=== PATIENT | female | born 1945 | race Caucasian/White ===

== ENCOUNTER 2016-11-29 11:13 | Outpatient (CLI) | payer MEDICARE | END 2016-11-29 11:14 | disposition home or self-care (01) | DX: R53.83 Other fatigue (principal); R53.1 Weakness; K57.92 Diverticulitis of intestine, part unspecified, without perforation or abscess without bleeding; Z79.899 Other long term (current) drug therapy ==

== ENCOUNTER 2016-11-30 12:42 | Outpatient (CLI) | payer MEDICARE ==
[2016-11-30] MEDS ORDERED: IOPAMIDOL-300 50 ML VIAL PO ONE (14:33)
[2016-11-30] MEDS ORDERED: IOPAMIDOL-300 100 ML VIAL IVP ONE (14:33)
== END 2016-11-30 12:43 | disposition home or self-care (01) ==
DX: K65.1 Peritoneal abscess (principal); K57.00 Diverticulitis of small intestine with perforation and abscess without bleeding
CPT/HCPCS: 74177; Q9967

== ENCOUNTER 2016-11-30 16:25 | Inpatient (IN) | payer MEDICARE ==
[2016-11-30] MEDS ORDERED: MORPHINE 2 MG/ML SYRINGE IVP STA ×2 (19:08→22:13)
[2016-11-30] MEDS ORDERED: MORPHINE 2 MG/ML SYRINGE ONE ×2 (19:24→22:26)
[2016-11-30] MEDS ORDERED: PIPERACILLIN/TAZOBACTAM 3.375 GM in SODIUM CHLORIDE 0.9% MINIBAG 100 ML IV STA (19:39)
[2016-11-30] MEDS ORDERED: HYDROmorphone 1 MG/ML SYRINGE IVP STA (22:31)
[2016-11-30] MEDS ORDERED: ERTAPENEM 1 GM in SODIUM CHLORIDE 0.9% MINIBAG 100 ML IV STA (22:31)
[2016-11-30] MEDS ORDERED: oxyCODONE/ACET 5/325 Prepack 4 PO STA (22:31)
[2016-11-30] MEDS ORDERED: oxyCODONE/ACET 5/325 Prepack 4 PO ONE (22:36)
[2016-11-30] MEDS ORDERED: HYDROmorphone 1 MG/ML SYRINGE ONE (22:36)
[2016-11-30] MEDS ORDERED: ONDANSETRON 4 MG/2 ML VIAL IVP STA (23:36)
[2016-11-30] MEDS ORDERED: ONDANSETRON 4 MG/2 ML VIAL ONE (23:37)
[2016-12-01] MEDS ORDERED: SODIUM CHLORIDE 0.9% 1,000 ML IV ONE (00:24)
[2016-12-01] MEDS ORDERED: PROMETHAZINE INJ 12.5 MG in SODIUM CHLORIDE 0.9% 50 ML IV STA (00:34)
[2016-12-01] MEDS ORDERED: FAMOTIDINE 20 MG/50 ML 50 ML IV ONE (00:46)
[2016-12-01] MEDS ORDERED: PANTOPRAZOLE 40 MG VIAL IVP STA (00:52)
[2016-12-01] MEDS ORDERED: PANTOPRAZOLE 40 MG VIAL ONE (00:56)
[2016-12-01] MEDS ORDERED: PROMETHAZINE 25 MG/1 ML VIAL ONE (01:31)
[2016-12-01] MEDS ORDERED: ONDANSETRON 4 MG/2 ML VIAL IVP PRN ×2 (03:26→07:59)
[2016-12-01] MEDS ORDERED: MORPHINE 2 MG/ML SYRINGE IVP PRN (03:26)
[2016-12-01] MEDS ORDERED: PROMETHAZINE 25 MG/1 ML VIAL IM PRN (03:26)
[2016-12-01] MEDS ORDERED: ZOLPIDEM 5 MG TABLET PO PRN (03:26)
[2016-12-01] MEDS ORDERED: PROCHLORPERAZINE 10 MG/2 ML VIAL IVP PRN (03:26)
[2016-12-01] MEDS ORDERED: oxyCODONE 5 MG TABLET PO PRN (03:26)
[2016-12-01] MEDS ORDERED: ACETAMINOPHEN 325 MG TABLET PO PRN (03:26)
[2016-12-01] MEDS: SODIUM CHLORIDE 0.9% 1,000 ML IV SCH ×3 (04:07→23:53)
[2016-12-01] MEDS: PANTOPRAZOLE 40 MG VIAL IVP SCH ×2 (04:07→15:51)
[2016-12-01] MEDS: SODIUM CHLORIDE FLUSH 0.9% 10 ML SYRINGE IVP SCH ×3 (04:08→23:57)
[2016-12-01] MEDS: IBUPROFEN 400 MG TABLET PO PRN ×2 (08:56→21:41)
[2016-12-01] MEDS: LOSARTAN 50 MG TABLET PO SCH ×2 (08:56→21:41)
[2016-12-01] MEDS: amLODIPine 5 MG TABLET PO SCH (08:56)
[2016-12-01] MEDS: ASPIRIN EC 81 MG TABLET PO SCH (08:56)
[2016-12-01] MEDS: ENOXAPARIN 40 MG/0.4 ML SYRINGE SUBQ SCH (08:57)
[2016-12-01] MEDS: INSULIN ASPART 300 UNIT/3 ML PEN SUBQ SCH ×4 (08:58→21:31)
[2016-12-01] MEDS: POLYETHYLENE GLYCOL 3350 17 GM PACKET PO SCH (09:00)
[2016-12-01] MEDS: ATENOLOL 25 MG TABLET PO SCH (09:05)
[2016-12-01] MEDS: ERTAPENEM 1 GM in SODIUM CHLORIDE 0.9% MINIBAG 100 ML IV SCH (12:21)
[2016-12-02] MEDS: SODIUM CHLORIDE FLUSH 0.9% 10 ML SYRINGE IVP SCH ×3 (06:55→16:19)
[2016-12-02] MEDS: PANTOPRAZOLE 40 MG VIAL IVP SCH ×2 (06:55→16:19)
[2016-12-02] MEDS ORDERED: IOPAMIDOL-300 100 ML VIAL IVP ONE (11:22)
[2016-12-02] MEDS: ASPIRIN EC 81 MG TABLET PO SCH (12:24)
[2016-12-02] MEDS: LOSARTAN 50 MG TABLET PO SCH ×2 (12:24→21:41)
[2016-12-02] MEDS: amLODIPine 5 MG TABLET PO SCH (12:24)
[2016-12-02] MEDS: ATENOLOL 25 MG TABLET PO SCH (12:24)
[2016-12-02] MEDS: ERTAPENEM 1 GM in SODIUM CHLORIDE 0.9% MINIBAG 100 ML IV SCH (12:25)
[2016-12-02] MEDS: INSULIN ASPART 300 UNIT/3 ML PEN SUBQ SCH ×4 (12:26→22:32)
[2016-12-02] MEDS: ENOXAPARIN 40 MG/0.4 ML SYRINGE SUBQ SCH (12:27)
[2016-12-02] MEDS: POLYETHYLENE GLYCOL 3350 17 GM PACKET PO SCH (12:27)
[2016-12-02] MEDS ORDERED: POTASSIUM CHLORIDE 20 MEQ TABLET PO SCH (13:00)
[2016-12-02] MEDS: POTASSIUM CHLORIDE 20 MEQ TABLET PO SCH (13:03)
[2016-12-02] MEDS: IBUPROFEN 400 MG TABLET PO PRN (16:14)
[2016-12-03] MEDS: SODIUM CHLORIDE 0.9% 1,000 ML IV SCH ×2 (02:39→06:47)
[2016-12-03] MEDS: PANTOPRAZOLE 40 MG VIAL IVP SCH ×2 (06:48→16:18)
[2016-12-03] MEDS: SODIUM CHLORIDE FLUSH 0.9% 10 ML SYRINGE IVP SCH ×3 (06:48→20:45)
[2016-12-03] MEDS: ERTAPENEM 1 GM in SODIUM CHLORIDE 0.9% MINIBAG 100 ML IV SCH (08:33)
[2016-12-03] MEDS: ASPIRIN EC 81 MG TABLET PO SCH (08:33)
[2016-12-03] MEDS: POLYETHYLENE GLYCOL 3350 17 GM PACKET PO SCH (08:33)
[2016-12-03] MEDS: LOSARTAN 50 MG TABLET PO SCH ×2 (08:33→20:43)
[2016-12-03] MEDS: amLODIPine 5 MG TABLET PO SCH (08:33)
[2016-12-03] MEDS: POTASSIUM CHLORIDE 20 MEQ TABLET PO SCH ×2 (08:33→08:34)
[2016-12-03] MEDS: ENOXAPARIN 40 MG/0.4 ML SYRINGE SUBQ SCH (08:33)
[2016-12-03] MEDS: ATENOLOL 25 MG TABLET PO SCH (08:33)
[2016-12-03] MEDS: IBUPROFEN 400 MG TABLET PO PRN (14:11)
[2016-12-03] MEDS: SODIUM CHLORIDE FLUSH 0.9% 10 ML SYRINGE IVP PRN (16:18)
[2016-12-03] MEDS: oxyCODONE 5 MG TABLET PO PRN (20:43)
[2016-12-04] MEDS: SODIUM CHLORIDE FLUSH 0.9% 10 ML SYRINGE IVP SCH ×3 (07:04→20:11)
[2016-12-04] MEDS: SODIUM CHLORIDE FLUSH 0.9% 10 ML SYRINGE IVP PRN (07:04)
[2016-12-04] MEDS: PANTOPRAZOLE 40 MG VIAL IVP SCH ×2 (07:04→16:54)
[2016-12-04] MEDS: POTASSIUM CHLORIDE 20 MEQ TABLET PO SCH (08:04)
[2016-12-04] MEDS: ASPIRIN EC 81 MG TABLET PO SCH (08:04)
[2016-12-04] MEDS: ERTAPENEM 1 GM in SODIUM CHLORIDE 0.9% MINIBAG 100 ML IV SCH (08:04)
[2016-12-04] MEDS: amLODIPine 5 MG TABLET PO SCH (08:04)
[2016-12-04] MEDS: LOSARTAN 50 MG TABLET PO SCH ×2 (08:04→20:11)
[2016-12-04] MEDS: IBUPROFEN 400 MG TABLET PO PRN (08:04)
[2016-12-04] MEDS: POLYETHYLENE GLYCOL 3350 17 GM PACKET PO SCH (08:05)
[2016-12-04] MEDS: ENOXAPARIN 40 MG/0.4 ML SYRINGE SUBQ SCH (08:05)
[2016-12-04] MEDS: ATENOLOL 25 MG TABLET PO SCH (08:05)
[2016-12-05] MEDS: IBUPROFEN 400 MG TABLET PO PRN (00:08)
[2016-12-05] MEDS: PANTOPRAZOLE 40 MG VIAL IVP SCH ×2 (06:54→17:16)
[2016-12-05] MEDS: SODIUM CHLORIDE FLUSH 0.9% 10 ML SYRINGE IVP SCH ×4 (06:55→21:32)
[2016-12-05] MEDS ORDERED: IOPAMIDOL-300 100 ML VIAL IVP ONE (09:30)
[2016-12-05] MEDS: POTASSIUM CHLORIDE 20 MEQ TABLET PO SCH (09:48)
[2016-12-05] MEDS: LOSARTAN 50 MG TABLET PO SCH ×2 (09:48→21:05)
[2016-12-05] MEDS: ASPIRIN EC 81 MG TABLET PO SCH (09:48)
[2016-12-05] MEDS: amLODIPine 5 MG TABLET PO SCH (09:48)
[2016-12-05] MEDS: ATENOLOL 25 MG TABLET PO SCH (09:48)
[2016-12-05] MEDS: ENOXAPARIN 40 MG/0.4 ML SYRINGE SUBQ SCH (09:54)
[2016-12-05] MEDS: POLYETHYLENE GLYCOL 3350 17 GM PACKET PO SCH (10:01)
[2016-12-05] MEDS: ERTAPENEM 1 GM in SODIUM CHLORIDE 0.9% MINIBAG 100 ML IV SCH (14:14)
[2016-12-05] MEDS ORDERED: LIDOCAINE 2% 10 ML MDV ONE (16:25)
[2016-12-05] MEDS: oxyCODONE 5 MG TABLET PO PRN (21:05)
[2016-12-05] MEDS: SODIUM CHLORIDE FLUSH 0.9% 10 ML SYRINGE IVP PRN (21:19)
[2016-12-06] MEDS: PANTOPRAZOLE 40 MG VIAL IVP SCH (06:07)
[2016-12-06] MEDS: SODIUM CHLORIDE FLUSH 0.9% 10 ML SYRINGE IVP SCH (06:07)
[2016-12-06] MEDS: ERTAPENEM 1 GM in SODIUM CHLORIDE 0.9% MINIBAG 100 ML IV SCH (08:57)
[2016-12-06] MEDS: ATENOLOL 25 MG TABLET PO SCH (08:57)
[2016-12-06] MEDS: POTASSIUM CHLORIDE 20 MEQ TABLET PO SCH (08:57)
[2016-12-06] MEDS: ASPIRIN EC 81 MG TABLET PO SCH (08:57)
[2016-12-06] MEDS: ENOXAPARIN 40 MG/0.4 ML SYRINGE SUBQ SCH ×2 (08:57→09:45)
[2016-12-06] MEDS: LOSARTAN 50 MG TABLET PO SCH (08:57)
[2016-12-06] MEDS: amLODIPine 5 MG TABLET PO SCH (08:57)
[2016-12-06] MEDS: POLYETHYLENE GLYCOL 3350 17 GM PACKET PO SCH (08:58)
== END 2016-12-06 14:11 | disposition home or self-care (01) | DRG 392 ==
PROC: 02HV33Z Insertion of Infusion Device into Superior Vena Cava, Percutaneous Approach (ICD-10-PCS; principal; 2016-12-05)
DX: K57.20 Diverticulitis of large intestine with perforation and abscess without bleeding (principal); I25.810 Atherosclerosis of coronary artery bypass graft(s) without angina pectoris; R11.0 Nausea; E87.6 Hypokalemia; R42 Dizziness and giddiness; R11.2 Nausea with vomiting, unspecified; T36.8X5A Adverse effect of other systemic antibiotics, initial encounter; Y92.238 Other place in hospital as the place of occurrence of the external cause; I10 Essential (primary) hypertension; Z79.82 Long term (current) use of aspirin; E78.5 Hyperlipidemia, unspecified; K21.9 Gastro-esophageal reflux disease without esophagitis; Z95.1 Presence of aortocoronary bypass graft

== ENCOUNTER 2016-12-15 16:56 | Outpatient (CLI) | payer MEDICARE ==
[2016-12-15] MEDS ORDERED: IOPAMIDOL-300 100 ML VIAL IVP ONE (18:46)
[2016-12-15] MEDS ORDERED: IOPAMIDOL-300 50 ML VIAL PO ONE (18:46)
== END 2016-12-15 16:57 | disposition home or self-care (01) ==
DX: K57.30 Diverticulosis of large intestine without perforation or abscess without bleeding (principal); I71.4 Abdominal aortic aneurysm, without rupture

== ENCOUNTER 2017-01-01 16:27 | Outpatient (CLI) | payer MEDICARE | END 2017-01-01 16:28 | disposition home or self-care (01) | DX: R10.9 Unspecified abdominal pain (principal); Z86.19 Personal history of other infectious and parasitic diseases ==

== ENCOUNTER 2017-01-25 10:08 | Outpatient (CLI) | payer MEDICARE | END 2017-01-25 10:09 | disposition home or self-care (01) | DX: Z00.00 Encounter for general adult medical examination without abnormal findings (principal); M81.0 Age-related osteoporosis without current pathological fracture; F32.9 Major depressive disorder, single episode, unspecified; K57.92 Diverticulitis of intestine, part unspecified, without perforation or abscess without bleeding; K57.20 Diverticulitis of large intestine with perforation and abscess without bleeding; I10 Essential (primary) hypertension; I25.10 Atherosclerotic heart disease of native coronary artery without angina pectoris; G47.33 Obstructive sleep apnea (adult) (pediatric); K21.9 Gastro-esophageal reflux disease without esophagitis; E11.9 Type 2 diabetes mellitus without complications ==

== ENCOUNTER 2017-02-05 16:00 | Outpatient (CLI) | payer MEDICARE | END 2017-02-05 16:01 | disposition home or self-care (01) | DX: I71.4 Abdominal aortic aneurysm, without rupture (principal); R10.13 Epigastric pain; R10.11 Right upper quadrant pain ==

== ENCOUNTER 2017-07-03 12:24 | Outpatient (CLI) | payer MEDICARE ==
[2017-07-03 12:54] LABS: BASOPHILS % (AUTO) 0.8 %; EOSINOPHILS # (AUTO) 0.1 10^3/uL (0.0-0.7); EOSINOPHILS % (AUTO) 1.8 %; HCT - HEMATOCRIT 38.4 % (37.0-47.0); HGB - HEMOGLOBIN 13.4 g/dL (12.0-16.0); LYMPHOCYTES # (AUTO) 1.2 10^3/uL (1.5-3.5); LYMPHOCYTES % (AUTO) 19.7 %; MEAN CORPUSCULAR HEMOGLOBIN 30.3 pg (27.0-31.0); MEAN CORPUSCULAR HGB CONC 34.9 g/dL (32.0-36.0); MEAN CORPUSCULAR VOLUME 87.1 fL (81.0-99.0); MEAN PLATELET VOLUME 7.3 fL (7.9-10.8); MONOCYTES # (AUTO) 0.3 10^3/uL (0.0-1.0); NEUTROPHILS # (AUTO) 4.3 10^3/uL (1.5-6.6); NEUTROPHILS % (AUTO) 72.7 %; NUCLEATED RED BLOOD CELLS AUTO 0.2 /100WBC; RED BLOOD COUNT 4.41 10^6/uL (4.20-5.40); RED CELL DISTRIBUTION WIDTH 13.2 % (12.0-15.0); UNCORRECTED WHITE BLOOD COUNT 5.9 x10^3/uL; WHITE BLOOD COUNT 5.9 x10^3/uL (4.8-10.8)
[2017-07-03 13:10] LABS: BILIRUBIN,DIRECT 0.1 mg/dL (0.1-0.5); BILIRUBIN,TOTAL 1.1 mg/dL (0.2-1.0); TOTAL PROTEIN 7.4 g/dL (6.7-8.2)
== END 2017-07-03 12:25 | disposition home or self-care (01) ==
LOC: LAB 12:24
PROVIDERS: ATTEND Internal Medicine
DX: R11.0 Nausea (principal); R10.13 Epigastric pain; R10.11 Right upper quadrant pain; I10 Essential (primary) hypertension; Z79.899 Other long term (current) drug therapy
CPT/HCPCS: 36415; 80076; 82150; 83690; 85025

== ENCOUNTER 2017-07-31 11:11 | Outpatient (CLI) | payer MEDICARE ==
[2017-07-31 12:07] LABS: HEMOGLOBIN A1C 0.6 g/dL
== END 2017-07-31 11:12 | disposition home or self-care (01) ==
LOC: LAB 11:11
PROVIDERS: ATTEND Internal Medicine
DX: E11.9 Type 2 diabetes mellitus without complications (principal)
CPT/HCPCS: 36415; 83036

== ENCOUNTER 2018-02-08 11:00 | Outpatient (CLI) | payer MEDICARE, OTHER ==
[2018-02-08 11:32] LABS: BASOPHILS % (AUTO) 0.7 %; EOSINOPHILS # (AUTO) 0.2 10^3/uL (0.0-0.7); EOSINOPHILS % (AUTO) 2.8 %; HGB - HEMOGLOBIN 14.4 g/dL (12.0-16.0); LYMPHOCYTES % (AUTO) 16.7 %; MEAN CORPUSCULAR HEMOGLOBIN 30.1 pg (27.0-31.0); MEAN CORPUSCULAR HGB CONC 34.5 g/dL (32.0-36.0); MEAN CORPUSCULAR VOLUME 87.1 fL (81.0-99.0); MEAN PLATELET VOLUME 7.2 fL (7.9-10.8); MONOCYTES # (AUTO) 0.3 10^3/uL (0.0-1.0); MONOCYTES % (AUTO) 4.8 %; NEUTROPHILS # (AUTO) 4.3 10^3/uL (1.5-6.6); PLT - PLATELET COUNT 175 10^3/uL (130-450); RED CELL DISTRIBUTION WIDTH 13.3 % (12.0-15.0); WHITE BLOOD COUNT 5.8 x10^3/uL (4.8-10.8)
[2018-02-08 11:48] LABS: BILIRUBIN,URINE NEGATIVE (NEGATIVE); GLUCOSE, URINE (UA) NEGATIVE (NEGATIVE); KETONES,URINE (UA) NEGATIVE (NEGATIVE); LEUKOCYTE ESTERASE, URINE TRACE (NEGATIVE); NITRITE,URINE NEGATIVE (NEGATIVE); OCCULT BLOOD,URINE NEGATIVE (NEGATIVE); PH,URINE 5.5 PH (5.0-7.5); PROTEIN,URINE NEGATIVE (NEGATIVE); UROBILINOGEN,URINE 0.2 (NORMAL) E.U./dL (NORMAL)
[2018-02-08 11:49] LABS: ALBUMIN 4.6 g/dL (3.2-5.5); ALBUMIN/GLOBULIN RATIO 1.5 (1.0-2.2); ALKALINE PHOSPHATASE 90 IU/L (42-121); ALT ALANINE AMINOTRANSFERASE 19 IU/L (10-60); AST ASPARTATE AMINOTRANSFERASE 28 IU/L (10-42); BILIRUBIN,TOTAL 1.4 mg/dL (0.2-1.0); BUN - BLOOD UREA NITROGEN 30 mg/dL (6-20); CALCIUM 9.7 mg/dL (8.5-10.3); CARBON DIOXIDE - CO2 25 mmol/L (21-32); CHLORIDE 105 mmol/L (101-111); CHOL/HDL RATIO 4.4 (<4.4); CHOLESTEROL 236 mg/dL; CK- CREATINE KINASE 81 IU/L (22-269); GFR - MDRD 54 (>89); GLUCOSE 105 mg/dL (70-100); HDL CHOLESTEROL 54 mg/dL; LDL CHOLESTEROL,CALCULATED 152 mg/dL; LDL/HDL RATIO 2.8 (<4.4); SODIUM 139 mmol/L (135-145); TOTAL PROTEIN 7.7 g/dL (6.7-8.2); VLDL CHOLESTEROL 30 mg/dL
[2018-02-08 11:50] LABS: CLARITY,URINE HAZY (CLEAR)
[2018-02-08 11:55] LABS: HB2 TOTAL 15.7 g/dL; HEMOGLOBIN A1C 0.61 g/dL; HEMOGLOBIN A1C % 5.7 % (4.6-6.2)
[2018-02-08 12:02] LABS: AMORPHOUS SEDIMENT,UR Marked /LPF; BACTERIA,URINE Few /HPF (None Seen); RBC,URINE 0-5 /HPF (0-5); SQUAMOUS EPITHELIAL CELL,UR RARE Squamous (<= Few)
[2018-02-08 12:35] LABS: THYROID STIMULATING HORMONE 1.12 uIU/mL (0.34-5.60)
== END 2018-02-08 11:01 | disposition home or self-care (01) ==
LOC: LAB 11:00
PROVIDERS: ATTEND Internal Medicine
DX: F34.1 Dysthymic disorder (principal); Z79.899 Other long term (current) drug therapy; Z80.3 Family history of malignant neoplasm of breast; I10 Essential (primary) hypertension; E78.5 Hyperlipidemia, unspecified; E11.9 Type 2 diabetes mellitus without complications; J30.2 Other seasonal allergic rhinitis; G47.33 Obstructive sleep apnea (adult) (pediatric); I25.10 Atherosclerotic heart disease of native coronary artery without angina pectoris; K21.9 Gastro-esophageal reflux disease without esophagitis; K76.0 Fatty (change of) liver, not elsewhere classified; K58.9 Irritable bowel syndrome, unspecified; K57.92 Diverticulitis of intestine, part unspecified, without perforation or abscess without bleeding; M19.90 Unspecified osteoarthritis, unspecified site; G25.0 Essential tremor; M81.0 Age-related osteoporosis without current pathological fracture; R10.2 Pelvic and perineal pain; R11.0 Nausea
CPT/HCPCS: 36415; 80053; 80061; 81001; 82306; 82550; 82607; 83036; 83721; 84443; 85025; 87086

== ENCOUNTER 2018-02-26 15:10 | Outpatient (CLI) | payer MEDICARE, OTHER ==
--- NOTE | 2018-02-27 11:59 | Mammography Report ---
DIGITAL SCREENING MAMMOGRAM: 02/26/2018 CLINICAL INDICATION: A 72-year-old for screening, family history of breast cancer. COMPARISON: 01/2015, 12/2013, 09/2012, 07/2011, 07/2010. TECHNIQUE: Routine CC and MLO projections were obtained of the breasts. FINDINGS: The breasts demonstrate scattered fibroglandular densities bilaterally. A few punctate, typically benign calcifications are present. No suspicious masses, clustered microcalcifications, or regions of architectural distortion are identified. IMPRESSION: BENIGN FINDINGS. RECOMMENDATION: Routine annual screening unless otherwise clinically indicated. BIRADS CATEGORY 2 - BENIGN FINDINGS. STANDARD QUALIFYING STATEMENTS: 1. This examination was reviewed with the aid of Computer-Aided Detection (CAD). 2. A negative or benign imaging report should not delay biopsy if clinically suspicious findings are present. Consider surgical consultation if warranted. More than 5% of cancers are not identified by imaging. 3. Dense breasts may obscure an underlying neoplasm. TD: 02/27/2018 11:57
== END 2018-02-26 15:11 | disposition home or self-care (01) ==
LOC: DI 15:10
PROVIDERS: ATTEND Internal Medicine
DX: Z12.31 Encounter for screening mammogram for malignant neoplasm of breast (principal); Z80.3 Family history of malignant neoplasm of breast
CPT/HCPCS: 77067

== ENCOUNTER 2018-02-26 15:12 | Outpatient (CLI) | payer MEDICARE, OTHER ==
--- NOTE | 2018-02-27 09:41 | Ultrasound Report ---
PELVIC ULTRASOUND: 02/26/2018 CLINICAL INDICATION: Pelvic pain. TECHNIQUE: Transabdominal pelvic ultrasound performed for global evaluation. Transvaginal pelvic ultrasound performed for detailed evaluation. Real-time scanning performed and static images obtained. FINDINGS: The uterus is anteverted, measuring 6.7 x 3.8 x 3.2 cm. The endometrial echo complex measures 4 mm. No focal myometrial lesion is present. The ovaries are normal, with the right measuring 1.9 x 1.7 x 1.2 cm, and the left measuring 1.6 x 1.2 x 1.1 cm. No free fluid is present. IMPRESSION: NORMAL POSTMENOPAUSAL PELVIC ULTRASOUND. TD: 02/27/2018 09:39
== END 2018-02-26 15:13 | disposition home or self-care (01) ==
LOC: DI 15:12
PROVIDERS: ATTEND Internal Medicine
DX: R10.2 Pelvic and perineal pain (principal)
CPT/HCPCS: 76830; 76856